=== PATIENT | female | born 1985 ===

== ENCOUNTER 2021-07-18 10:00 | Outpatient (RCR) | payer OTHER, SELFPAY | END 2021-08-03 15:08 | disposition home or self-care (01) | LOC: HO.PT 10:00 | PROVIDERS: PCP Internal Medicine; Visit Provider Internal Medicine | DX: M54.31 Sciatica, right side (principal) | CPT/HCPCS: 97110; 97161 ==

== ENCOUNTER 2023-05-13 19:36 | Emergency (ER) | payer OTHER, SELFPAY ==
--- NOTE | ~2023-05-13 | XR_ITS ---
EXAMINATION: XR CHEST CLINICAL INFORMATION: Chest pain, shortness of breath. COMPARISON: None available. TECHNIQUE: 2 views of the chest were obtained. FINDINGS: No significant abnormality is noted involving the heart, lungs, mediastinum, bony thorax or soft tissues. XR/XR chest 2V IMPRESSION: Unremarkable examination.
[2023-05-13 19:45] VITALS: BP 118/76; PULSE 73; RESP 16; TEMP 37.2; O2SAT 97; BMI 36.2
--- NOTE | 2023-05-13 19:45 | ED.LOWEXIN ---
HPI - Extremity Injury (Lower) General Chief Complaint: Extremity Problem Stated Complaint: ?Blood clot in L leg Time Seen by Provider: 05/13/23 22:16 Source: patient Mode of arrival: ambulatory Limitations: no limitations History of Present Illness HPI Narrative: 38-year-old female came in for evaluation of shortness of breath with exertion, patient also noticed prominence of her leg veins yesterday and bruise on left calf, no trauma, no falls, no lower extremity swelling, no recent travel, no prolonged immobilization, no family history of DVT or PE. No AC. Related Data Allergies Allergy/AdvReac Type Severity Reaction Status Date / Time No Known Allergies Allergy Unverified 06/08/20 17:18 [No Known Allergies*] Review of Systems Review of Systems: All other systems are reviewed and are negative Constitutional: Reports as per HPI and Reports no additional constitutional complaints Eyes: Reports as per HPI and Reports no additional eye complaints Reports system reviewed and no additional complaints, except as documented Cardiovascular: Reports as per HPI and Reports no additional cardiovascular complaints Respiratory: Reports as per HPI and Reports no additional respiratory complaints Gastrointestinal: Reports as per HPI and Reports no additional gastrointestinal complaints Genitourinary: Reports no additional female genitourinary complaints Musculoskeletal: Reports no additional musculoskeletal complaints Skin/Breast: Reports system reviewed and no additional complaints, except as docu Psychiatric: Reports no additional psychiatric complaints Endocrine: Reports no additional endocrine complaints Hematologic/Lymphatic: Reports no additional hematologic/lymphatic complaints Allergic/Immunologic: Reports no additional allergic/immunologic complaints Reports system reviewed and no additional complaints, except as documented and Reports Abnormal speech present Physical Exam Vital Signs: Vital Signs: Last Vital Signs Temp 99.0 F 05/13/23 19:45 Pulse 73 05/13/23 19:45 Resp 16 05/13/23 19:45 BP 118/76 05/13/23 19:45 Pulse Ox 97 05/13/23 19:45 O2 Del Method Room Air 05/13/23 19:45 BMI result Body Mass Index 36.2 Vital signs have been reviewed as appeared to be correct. Blood pressure normal. Heart rate normal. Respiration rate normal. Temperature normal. Oxygen saturation normal. Appearance: Alert. Oriented X3. No acute distress. Head: Normal external exam. Normocephalic. Atraumatic. No Vance signs noted. No raccoon eyes noted Eyes: PERRLA. EOMI. Conjunctiva and sclera normal. Eyelids normal. ENT: TM's Normal. Pharynx normal. Uvula midline. Moist mucous membranes. No trismus noted. No drooling noted. No muffled voice noted. Neck: Normal inspection. Neck supple. FROM. No adenopathy. Thyroid Normal. No meningeal signs. No neck mass noted. CVS: Normal heart rate and rhythm. Heart sound normal. No murmurs noted. Pulses normal throughout. Respiratory: No respiratory distress. Painless inspiration. Breath sounds normal. No wheezes/rales/rhonchi noted. Chest nontender. No accessory muscle usage noted or decreased air movement noted. Abdomen: Soft and nontender. Bowel sounds normal in all 4 quadrants. No distention noted. No organomegaly noted. No visible injury noted. Back: No CVA tenderness. Full range of motion noted. Skin: Skin warm and dry. Normal skin color. Normal skin turgor. No rashes/lesions/lacerations noted. Extremities: No lower extremity edema. Extremities exhibit normal range of motion. Extremities nontender. Neuro: Oriented X 3. Cranial nerve exam: II-XII are grossly intact No motor deficit. No sensory deficit. Reflexes normal. Course Course Course Narrative: RME: 38yo F w/no sig PMHx c/o LLE pain and bruising since yesterday. Also reports CP/SOB. denies OCPs, travel, smoking, hx clots EKG, labs including d-dimer & CXR ordered Full HPI, ROS and PE to be performed by primary ED provider. Reevaluation(s) Reevaluation #1: 38-year-old female otherwise healthy came in for evaluation of lower extremities swelling and bruise with a concern of shortness of breath and chest pain yesterday. Low risk for DVT/PE no recent travel, no recent prolonged immobilization, negative D-dimer. Time: 22:29 Medical Decision Making Differential Diagnosis Differential Diagnoses: The differential diagnosis associated with the presentation includes (ACS, pulmonary embolism, DVT, pneumonia, pneumothorax, pleural effusion, electrolyte abnormality, severe anemia.) Admission/Observation Consideration of admission/observation: Escalation of care including admission/observation considered Lab Data MDM Lab Attestation statement: I reviewed the patient's lab results. 05/13/23 21:02 05/13/23 21:02 Labs: Lab Results 0805/13/23 05/13/23 Range/Units 21:02 21:02 21:02 WBC 9.6 (4.8-10.8) X10*3/uL RBC 5.28 (4.20-5.50) X10*6/uL Hgb 14.0 (12.0-16.0) g/dl Hct 43.7 (37.0-47.0) % MCV 82.8 (80.0-98.0) fL MCH 26.5 L (27.0-33.0) pg MCHC 32.0 (31.0-35.0) g/dl RDW 12.3 (11.0-16.0) % Plt Count 313 (160-400) X10*3/uL MPV 10.4 (9.4-12.3) fL Immature Gran % (Auto) 0.3 (0.0-0.4) % Neut % (Auto) 64.5 (45-73) % Lymph % (Auto) 25.3 (20-40) % [place] % (Auto) 7.0 (2-11) % Eos % (Auto) 2.4 (0-4) % Baso % (Auto) 0.5 (0-2) % Lymph # (Auto) 2.4 (1.2-4.9) X10*3/uL [place] # (Auto) 0.7 (0.1-1.2) X10*3/uL Eos # (Auto) 0.2 (0.0-0.4) X10*3/uL Baso # (Auto) 0.1 (0.0-0.2) X10*3/uL Abs Immat Gran (auto) 0.03 (0.00-0.03) X10*3/uL Absolute Neuts (auto) 6.2 (2.0-8.3) x10*3/uL Absolute Nucleated RBC 0.000 (0.0-0.012) X10*3/uL Nucleated RBC % (auto) 0.0 (0.0-0.2) /100WBC D-Dimer High Sensitivty < 150 NG/ML Sodium 140 (135-145) mmol/L Potassium 4.1 (3.3-5.1) mmol/L Chloride 106 (96-108) mmol/L Carbon Dioxide 25 (22-29) mmol/L Anion Gap 13 (12-20) BUN 16 (9-16) mg/dL Creatinine 0.78 (0.5-1.4) mg/dL Estim Creat Clear Calc 107.9 Estimated GFR > 60 Random Glucose 89 (60-115) mg/dL Calcium 9.5 (8.4-10.2) mg/dL Troponin I High Sens (<3.5-17.0) ng/L Beta HCG, Quant < 2 mIU/mL 05/13/23 Range/Units 21:02 WBC (4.8-10.8) X10*3/uL RBC (4.20-5.50) X10*6/uL Hgb (12.0-16.0) g/dl Hct (37.0-47.0) % MCV (80.0-98.0) fL MCH (27.0-33.0) pg MCHC (31.0-35.0) g/dl RDW (11.0-16.0) % Plt Count (160-400) X10*3/uL MPV (9.4-12.3) fL Immature Gran % (Auto) (0.0-0.4) % Neut % (Auto) (45-73) % Lymph % (Auto) (20-40) % [place] % (Auto) (2-11) % Eos % (Auto) (0-4) % Baso % (Auto) (0-2) % Lymph # (Auto) (1.2-4.9) X10*3/uL [place] # (Auto) (0.1-1.2) X10*3/uL Eos # (Auto) (0.0-0.4) X10*3/uL Baso # (Auto) (0.0-0.2) X10*3/uL Abs Immat Gran (auto) (0.00-0.03) X10*3/uL Absolute Neuts (auto) (2.0-8.3) x10*3/uL Absolute Nucleated RBC (0.0-0.012) X10*3/uL Nucleated RBC % (auto) (0.0-0.2) /100WBC D-Dimer High Sensitivty NG/ML Sodium (135-145) mmol/L Potassium (3.3-5.1) mmol/L Chloride (96-108) mmol/L Carbon Dioxide (22-29) mmol/L Anion Gap (12-20) BUN (9-16) mg/dL Creatinine (0.5-1.4) mg/dL Estim Creat Clear Calc Estimated GFR Random Glucose (60-115) mg/dL Calcium (8.4-10.2) mg/dL Troponin I High Sens < 2.7 (<3.5-17.0) ng/L Beta HCG, Quant mIU/mL Independent Interpretation I performed an independent interpretation of an: Plain X-Ray (No acute intrathoracic pathology.) Radiology Impression Discussion of test interpretation with radiology: I have reviewed the radiologist's reading. Scores Heart Score History: -0- slightly suspicious ECG: -0- normal Age: -0- < or = 45 Risk factory: -0- no risk factors known Troponin: -0- < or = normal limit Score: 0 Risk: 1.7% Wells DVT Alternative Dx as likely as or more likely than DVT: -2 Score: -2 2-tier Risk: unlikely risk (5%) 3-tier Risk: low risk (3%) Discharge Plan Discharge Clinical Impression: Acute leg pain, Dyspnea Patient Disposition: Home, Self-Care Instructions: Dyspnea (ED) Referrals: Latesha Allen MD [Primary Care Provider] -
--- NOTE | 2023-05-13 19:48 | ECG_ITS ---
Test Reason : BLOOD CLOT Blood Pressure : / mmHG Vent. Rate : 071 BPM Atrial Rate : 071 BPM P-R Int : 174 ms QRS Dur : 086 ms QT Int : 394 ms P-R-T Axes : 041 070 045 degrees QTc Int : 428 ms Normal sinus rhythm with sinus arrhythmia Normal ECG No previous ECGs available Referred By: Ronit Cody Electronically Signed By:CHELLE WARREN
[2023-05-13 21:06] LABS: MANUAL DIFF FLAG NO
[2023-05-13 21:09] LABS: Basophils Absolute Auto 0.1 X10*3/uL (0.0-0.2); Basophils Percent Auto 0.5 % (0-2); Eosinophils Absolute Auto 0.2 X10*3/uL (0.0-0.4); Eosinophils Percent Auto 2.4 % (0-4); Hematocrit 43.7 % (37.0-47.0); Imm Gran Abs Auto 0.03 X10*3/uL (0.00-0.03); Imm Gran Pct Auto 0.3 % (0.0-0.4); Lymphocytes Absolute Auto 2.4 X10*3/uL (1.2-4.9); Lymphocytes Percent Auto 25.3 % (20-40); Mean Corpuscular Hemoglobin 26.5 pg (27.0-33.0); Mean Corpuscular Volume 82.8 fL (80.0-98.0); Mean Platelet Volume 10.4 fL (9.4-12.3); Monocytes Absolute Auto 0.7 X10*3/uL (0.1-1.2); Neutrophils Absolute Auto 6.2 x10*3/uL (2.0-8.3); Neutrophils Percent Auto 64.5 % (45-73); Platelet Count 313 X10*3/uL (160-400); Red Blood Count 5.28 X10*6/uL (4.20-5.50); Red Cell Distribution Width 12.3 % (11.0-16.0); White Blood Count 9.6 X10*3/uL (4.8-10.8)
[2023-05-13 21:26] LABS: Anion Gap 13 (12-20); Blood Urea Nitrogen 16 mg/dL (9-16); Calcium 9.5 mg/dL (8.4-10.2); Carbon Dioxide 25 mmol/L (22-29); Chloride 106 mmol/L (96-108); Creatinine Clr Calc Pharmacy 107.9; Estimated Glomerular Filt Rate > 60; Glucose Random 89 mg/dL (60-115); Potassium 4.1 mmol/L (3.3-5.1); Sodium 140 mmol/L (135-145)
[2023-05-13 21:28] LABS: HCG Quantitative < 2 mIU/mL; Troponin-I High Sensitivity < 2.7 ng/L (<3.5-17.0)
[2023-05-13 21:52] LABS: D Dimer High Sensitivity < 150 NG/ML
--- OUTSIDE RECORDS SUMMARY | 2023-05-13 22:29 | XMS_ITS | Continuity of Care Document ---
Author Name Unknown Organization [facility] Address [address] [place] [address]- Care Team Providers Care Welding Setter Name Role Phone Jazzy VAZQUEZ, Ted Walker Primary Care Physician [phone] Encounter [facility] Date(s): 11/04/21 - 12/04/21 [facility] [address], [place] [address] Attending Physician: Rashard Nicolas Admitting Physician: AdmtrRashard Referring Physician: Admtr, Ar8 Allergies, Adverse Reactions, Alerts Substance Reaction Severity Status Other Food Allergy 1, 2 Itching Acti ve Almonds Active 1almonds 2peaches Immunizations Given and Recorded Vaccine Date Status Refusal Reason influenza virus vaccine, inactivated 1 06/11/13 Gi sánchez influenza virus vaccine, inactivated 06/21/12 Give n influenza virus vaccine, inactivated 07/21/89 Give n tetanus/diphtheria/pertussis, acel(Tdap) 2 06/11/13 Given tetanus/diphtheria/pertussis, acel(Tdap) 3 06/21/12 Given tetanus-diphtheria toxoids (Td) 09/07/07 Given tetanus-diphtheria toxoids (Td) 05/31/99 Given hepatitis B pediatric vaccine 06/10/98 Given hepatitis B pediatric vaccine 10/04/97 Given hepatitis B pediatric vaccine 08/31/97 Given Measles/Mumps/Rubella Virus Vaccine 08/27/95 Given Measles/Mumps/Rubella Virus Vaccine 01/07/89 Given diphtheria/tetanus/pertussis, acel(DTaP) 06/08/91 Given diphtheria/tetanus/pertussis, acel(DTaP) 12/24/88 Given diphtheria/tetanus/pertussis, acel(DTaP) 87 Given diphtheria/tetanus/pertussis, acel(DTaP) 87 Given diphtheria/tetanus/pertussis, acel(DTaP) 87 Given Poliovirus Vaccine, Inactivated 12/24/88 Given Poliovirus Vaccine, Inactivated 87 Given Poliovirus Vaccine, Inactivated 87 Given Poliovirus Vaccine, Inactivated 87 Given 1Admin Note: VIS GIVEN , DATED 04/16/2013 2Admin Note: vis given, dated 10/15/2011 3Admin Note: vis 10/15/2011 Problem List Condition Effective Dates Status Health Status Inform ant Rectocele(Confirmed) Active Streptococcal pharyngitis(Confirmed) 10/25/08 Active Term (Confirmed) Active Social History Social History Type Response Tobacco Use: smokes hookah. Sex
--- OUTSIDE RECORDS SUMMARY | 2023-05-13 22:29 | XMS_ITS | Continuity of Care Document ---
Author Name Unknown Organization [facility] Address [address] [place] [address]- Care Team Providers Care Charter Driver Name Role Phone Jazzy VAZQUEZ, Ted Walker Primary Care Physician [phone] [place] [facility] [place] 08/08/22 - 08/15/22 [facility] [address] [place], [place] [address] Attending Physician: Remington Keller DO Referring Physician: Joshua Day MD Allergies, Adverse Reactions, Alerts Substance Reaction Severity [...] 3Admin Note: vis 10/15/2011 Problem List Condition Confirmation Course Effective Dates Status H ealth Status Informant Rectocele Confirmed Active Streptococcal pharyngitis Confirmed 10/25/08 Active Term Confirmed Active Vital Signs Most recent to oldest [Reference Range]: 1 Height 160.00 cm (08/08/22 1:43 PM) Oxygen Saturation [94-100 %] 100 % (08/08/22 1:43 PM) Pulse Rate [55-90 bpm] 64 bpm (08/08/22 1:43 PM) Blood Pressure [90-138/55-84 mm Hg] 133/ 70mm Hg (08/08/22 1:43 PM) Respiratory Rate [16-30 br/min] 18 br/mi n (08/08/22 1:43 PM) Temperature [96.8-100.4 DegF] 98.1 DegF (08/08/22 1:43 PM) Mode of Delivery (Oxygen) Room air (08/08/22 1:43 PM) Blood pressure sites Arm, left (08/08/22 1:43 PM) Temperature Route Temporal (08/08/22 1:43 PM) Social History Social History Type Response Tobacco Use: smokes hookah. Sex Note * Alondra Calvert: PERFORM, SIGN, VERIFY Event Display: Patient Education/Instruction Authored Date: [id number] [facility] *[facility] Clinical Summary Name MOE CRAFT Age 37 Years 1985 PCP Jazzy VAZQUEZ, Ted Walker PCP Visit Date 08/08/2022 13:30:00 Additional Instructions: Scheduled Appointments?? Future Appointments ?No Future Appointments Scheduled Follow-Up Instructions ?? Diagnosis Medications: Please continue your medications until treatment is completed or stopped by your provider. Discuss any questions related to medications with your provider. New Medications [id number], [address], [place] [id number], [phone] Clindamycin (clindamycin 300 mg oral capsule) 1 capsule Oral 3 times a day for 7 Days. Refills: 0. Next Dose: Allergy Info:?? Other Food Allergy; Almonds Medications Given This Visit Future Orders ?No future orders Vital Signs Height 160.00 cm Weight BMI Blood Pressure 133 mm Hg/70 mm Hg Temperature 98.1 DegF Pulse Rate 64 bpm Respiratory Rate 18 br/min 02 Sat Mode of Delivery 100 %/Room air You can now view a summary of your hospital visit from the comfort of your home through a free online portal called [employer] is a website that allows you to securely view your medical information including discharge summary, medications and follow-up visits. ??You can alsosend a secure electronic message to your doctor???s office to request appointments, renew medications or just ask a question. You can enroll at [email or web address]) or register during your next office visit. Disclaimer:?? The information provided is of a general nature and is intended to be used in conjunction with the recommendations and advice of your health care practitioner. ??Every effort has been made to ensure that the information provided is accurate and complete at the time it is provided to you however, as your needs change, or, as new ??information becomes available, different or additional instructions may be required. If you have questions, please consult with your primary care provider or pharmacist, as appropriate. ??This information is not intended to serve as substitution for assessment and evaluation by a qualified health care provider. If you do not have a primary care provider, you may find a [facility] provider by calling [facility] [employer] at [phone]. For information about the plan of care including goals and instructions for your diagnosis, please see the patient education orders section of this document. Patient Education Materials?? The content of this educational material or handout may have been modified, supplemented, or adapted from its original content and format to support your individualized medical care. Patient Care team information Care Team Personnel Name: eTd Purcell MD Position: [facility] Physician (General Medicine) Member Role: PCP Address: Address: [address] [place] [address]- Care Team Related Persons Name: AUSTIN TREVIZO Address: [address] [place] [address] Name: MIRIAM RING Address: home [address] [place] [address]
--- OUTSIDE RECORDS SUMMARY | 2023-05-13 22:29 | XMS_ITS | Continuity of Care Document ---
Author Name Unknown Organization [facility] Address [address] [place] [address]- Care Team Providers Care Wallpaper Hanger Name Role Phone Jazzy VAZQUEZ, Ted Walker Primary Care Physician [facility]counter [facility] Date[facility]s): 11/[facility]21 - 11/11/21 [facility] [address] [place], [place] [address] Attending Physician: Frantz VAZQUEZ, Ronit Tillman Referring Physician: Joshua Day MD Allergies, Adverse Reactions, Alerts Substance Reaction Severity Status Almonds Active Other Food Allergy 1, 2 Itching Acti ve 1almonds 2peaches Immunizations Given and Recorded Vaccine [...] Streptococcal pharyngitis(Confirmed) 10/25/08 Active Term (Confirmed) Active Vital Signs Most recent to oldest [Reference Range]: 1 Height 160.00 cm (11/04/21 1:52 PM) Oxygen Saturation [94-100 %] 99 % (11/04/21 1:52 PM) Pulse Rate [55-90 bpm] 84 bpm (11/04/21 1:52 PM) Blood Pressure [90-138/55-84 mm Hg] 135/ 83mm Hg (11/04/21 1:52 PM) Temperature [96.8-100.4 DegF] 99.2 DegF (11/04/21 1:52 PM) Mode of Delivery (Oxygen) Room air (11/04/21 1:52 PM) Blood pressure sites Arm, right (11/04/21 1:52 PM) Temperature Route Temporal (11/04/21 1:52 PM) Social History Social History Type Response Tobacco Use: smokes hookah. Sex
--- OUTSIDE RECORDS SUMMARY | 2023-05-13 22:29 | XMS_ITS | Continuity of Care Document ---
Author Name Unknown Organization [facility] Address [address] [place] [address]- Care Team Providers Care Chiropractic Assistant Name Role Phone Jazzy VAZQUEZ, Ted Walker Primary Care Physician [facility]counter [facility]s): 08/08[facility]22 - 09/07/22 [facility] [address] [place], [place] [address] Attending Physician: AdmRashard calzada Admitting Physician: Admtr, Ar8 Referring Physician: Admtr, Ar8 Allergies, Adverse Reactions, [...] pharyngitis Confirmed 10/25/08 Active Term Confirmed Active Social History Social History Type Response Tobacco Use: smokes hookah. Sex Patient Care team information Care Team Personnel Name: Jazzy VAZQUEZ, Ted Walker Position: [facility] Physician (General Medicine) Member Role: PCP Address: Address: [address] [place] [address]- Care Team Related Persons Name: AUSTIN TREVIZO Address: home [address] [place] [address] Name: MIRIAM RING Address: home [address] [place] [address]
== END 2023-05-13 23:04 | disposition home or self-care (01) ==
PROVIDERS: Physician Assistant; Emergency Provider Emergency Medicine; PCP Internal Medicine
DX: M79.662 Pain in left lower leg (principal); R06.02 Shortness of breath
CPT/HCPCS: 36415; 71046; 80048; 84484; 84702; 85025; 85379; 93005; 99283

== ENCOUNTER 2023-10-03 19:38 | Emergency (ER) | payer OTHER, SELFPAY ==
[2023-10-03 19:59] VITALS: BP 147/86; PULSE 70; RESP 16; TEMP 36.2; O2SAT 98; BMI 35.1
--- NOTE | 2023-10-03 23:48 | ED.BACK ---
HPI - Back Pain/Injury General Chief Complaint: Back Pain/Injury Stated Complaint: lower back pain x1week Time Seen by Provider: 10/03/23 22:59 Source: patient Mode of arrival: ambulatory History of Present Illness HPI Narrative: 38-year-old female who presents with acute on chronic back pain for the past few days without associated fever, chills, dysuria. Patient denies any bowel bladder dysfunction. Related Data Previous Rx's Medication Instructions Recorded cyclobenzaprine 5 mg tablet 5 mg PO BEDTIME PRN muscle spasm 10/03/23 #4 tabs ketorolac 10 mg tablet 10 mg PO Q6H PRN pain 5 days #20 10/03/23 tabs Allergies Allergy/AdvReac Type Severity Reaction Status Date / Time No Known Allergies Allergy Verified 10/03/23 19:59 [No Known Allergies*] Review of Systems Review of Systems: Pertinent positives and negatives as stated in [facility] Past Medical History Source: nursing notes reviewed Onset Date is defined in the Problem List Problems that require an onset date and time if occurred within 24 hrs of arrival to the ED Aortic Dissection and Rupture; Neurologic impairment; Cardiopulmonary Arrest; Endotracheal Intubation; Insertion or Replacement of Mechanical Circulatory Assist Device Social History Social History Advance Directives: No Advance Directives Information Provided: No Physical Exam Vital Signs: Vital Signs: Last Vital Signs Temp 97.2 F 10/03/23 19:59 Pulse 70 10/03/23 19:59 Resp 16 10/03/23 19:59 BP 147/86 H 10/03/23 19:59 Pulse Ox 98 10/03/23 19:59 O2 Del Method Room Air 10/03/23 19:59 BMI result Body Mass Index 35.1 VITAL SIGNS: Reviewed. GENERAL: Well developed, well nourished, in no acute distress. HEAD: Normocephalic/atraumatic EYES: PERRLA, EOMI LUNGS: Normal breath sounds. No adventitious sounds or accessory muscle use. SpO2<98> CARDIOVASCULAR: Regular rate and rhythm without noted murmurs ABDOMEN: Soft, non-tender, non-distended with bowel sounds. MUSCULOSKELETAL: No tenderness, deformities, or effusions noted on gross inspection. EXTREMITIES: No cyanosis, clubbing or edema. SKIN: Inspection of the skin reveals no rashes NEUROLOGIC: Alert and oriented x 4. Strength and sensation to light touch were grossly intact x 4. Medications Administered Discontinued Medications Generic Name Dose Route Start Last Admin Trade Name Baudilio PRN Reason Stop Dose Admin Acetaminophen 975 mg 10/03/23 23:48 10/04/23 00:08 Acetaminophen 325 Mg Tablet PO 10/03/23 23:49 975 mg ONCE ONE Administration Ketorolac Tromethamine 15 mg 10/03/23 23:48 10/04/23 00:08 Ketorolac Tromethamine 15 Mg/Ml Vial IM 10/03/23 23:49 15 mg ONCE ONE Administration Lidocaine 1 patch 10/03/23 23:48 10/04/23 00:07 Lidocaine 4 % Patch Adh..Patch TRANSDERMA 10/03/23 23:49 1 patch ONCE ONE Administration Protocol Medical Decision Making Medical Decision Making MDM Narrative: 38-year-old female with history and clinical presentation consistent with atraumatic back pain, no red flag symptoms to suggest acute cord compression. Suspect patient has a lumbar radiculopathy and patient provided with combination analgesics and a lidocaine patch and then discharged on similar course with the addition of a short course of cyclobenzaprine. Differential Diagnosis Differential Diagnoses: The differential diagnosis associated with the presentation includes Please see the discussion Admission/Observation Consideration of admission/observation: Escalation of care including admission/observation considered Please see the discussion above Discharge Plan Discharge Clinical Impression: Lumbar radiculopathy, Muscle spasm Patient Disposition: Home, Self-Care Instructions: Lumbar Radiculopathy (ED), Muscle Spasm (ED), Lower Back Exercises (ED) Additional Instructions: 1. Tylenol 1000 mg, orally, every 6 hours as needed for pain control. Do not exceed 4000 mg within 24 hours. 2. Lidocaine patch, apply to area of maximal tenderness as directed on the outside packaging. 3. Follow-up with your primary care doctor in discuss possible physical therapy. Return to the ER for any worsening symptoms. Prescriptions: New ketorolac 10 mg tablet 10 mg PO Q6H PRN (Reason: pain) 5 Days Qty: 20 0RF Rx Instructions: Patient received Toradol in the emergency room cyclobenzaprine 5 mg tablet 5 mg PO BEDTIME PRN (Reason: muscle spasm) Qty: 4 0RF Referrals: Wero Allen [Primary Care Provider] -
[2023-10-04] MEDS: Lidocaine 4 % Patch ADH..PATCH 1 PATCH TRANSDERMA (00:07)
[2023-10-04] MEDS: Acetaminophen 325 MG TABLET 975 MG PO (00:08)
[2023-10-04] MEDS: Ketorolac Tromethamine 15 MG/ML VIAL IM (00:08)
== END 2023-10-04 00:11 | disposition home or self-care (01) ==
PROVIDERS: Emergency Provider Student in an Organized Health Care Education/Training Program; PCP Internal Medicine
DX: M54.16 Radiculopathy, lumbar region (principal); R25.2 Cramp and spasm
CPT/HCPCS: 96372; 99284; J1885

== ENCOUNTER 2024-03-20 15:25 | Emergency (ER) | payer OTHER, SELFPAY ==
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
[2024-03-20 15:57] VITALS: BP 133/70; PULSE 75; RESP 18; TEMP 36.5; O2SAT 99; BMI 36.9
[2024-03-20 16:41] LABS: HCG Quantitative < 2 mIU/mL
[2024-03-20] MEDS: Ondansetron ODT 4 MG TAB.RAPDIS TRANSLINGU (17:49)
[2024-03-20] MEDS: Ketorolac Tromethamine 30 MG/ML VIAL IM (17:49)
[2024-03-20 18:08] VITALS: BP 115/59; PULSE 77; RESP 16; TEMP 36.7; O2SAT 98
[2024-03-20 18:37] VITALS: BP 115/59; PULSE 77; RESP 16; TEMP 36.7; O2SAT 98
== END 2024-03-20 18:37 | disposition home or self-care (01) ==
PROVIDERS: Physician Assistant Medical; Emergency Provider Emergency Medicine; PCP Internal Medicine
DX: S06.0X0A Concussion without loss of consciousness, initial encounter (principal); S00.11XA Contusion of right eyelid and periocular area, initial encounter; Y04.2XXA Assault by strike against or bumped into by another person, initial encounter; R51.9 Headache, unspecified; Y93.89 Activity, other specified; Y92.511 Restaurant or cafe as the place of occurrence of the external cause; Y99.9 Unspecified external cause status
CPT/HCPCS: 36415; 70450; 70486; 84702; 96372; 99284; J1885

== ENCOUNTER 2024-06-22 08:09 | Emergency (ER) | payer OTHER, SELFPAY ==
[2024-06-22 08:11] VITALS: BP 145/84; PULSE 67; RESP 18; TEMP 36.7; O2SAT 96; BMI 34.7
--- NOTE | 2024-06-22 10:16 | ED_ITS ---
HPI - General Adult General Chief complaint: Back Pain/Injury Stated complaint: back pain Time Seen by Provider: 06/22/24 09:34 Source: patient Mode of arrival: ambulatory Limitations: no limitations History of Present Illness ED Provider: Kamaljit Duffy PA-C HPI narrative: 39 yold female with pmh of scaitca and lumbar radiculopathy presents to the ED for right-sided lower back pain radiating down right leg. Patient states having these episodes before in the past. Patient denies any urinary/bowel incontinence. Patient denies any nausea, vomiting, dysuria, hematuria, flank pain, fever, chills, or any history of IV drug use. Patient denies any history of HIV hepatitis-C or any immunocompromise diseases. Patient denies any new trauma or any numbness/tingling in genital area. Related Data Previous Rx's ?Medication ?Instructions ?Recorded cyclobenzaprine 5 mg tablet 5 mg PO BEDTIME PRN muscle spasm 10/03/23 #4 tabs ketorolac 10 mg tablet 10 mg PO Q6H PRN pain 5 days #20 10/03/23 tabs ondansetron 4 mg disintegrating 4 mg PO DAILY PRN nausea and 03/20/24 tablet vomiting 5 days #10 tabs ketorolac 10 mg tablet 10 mg PO Q6H PRN pain 5 days #20 06/22/24 tabs lidocaine 4 % topical patch 1 patch topical DAILY PRN pain #15 06/22/24 ea prednisone 20 mg tablet 40 mg (2 x 20 mg) PO DAILY 5 days 06/22/24 #10 tabs Allergies Allergy/AdvReac Type Severity Reaction Status Date / Time No Known Allergies Allergy Verified 06/22/24 08:12 [No Known Allergies*] Review of Systems Review of Systems: back pain radiating down right leg Yes all other systems are reviewed and are negative PMFSH Social History Social History Advance Directives: No Advance Directives Information Provided: No Do you have a plan to hurt others: No Plan Physical Exam ED Vital Signs: Vital Signs - 24 hr 06/22/24 08:11 06/22/24 11:42 06/22/24 11:46 Temperature 98.0 F 98.3 F 98.3 F Pulse Rate 67 73 73 Respiratory Rate 18 20 20 Blood Pressure 145/84 H 119/78 119/78 Pulse Oximetry 96 97 97 Oxygen Delivery Method Room Air Room Air Room Air BMI result Body Mass Index 34.7 Const General: cooperative, healthy appearing, comfortable, no acute distress, well developed, alert, awake and Physically active Orientation/consciousness: patient oriented x3 [facility] Head: Yes normal to inspection, Yes No palpable skull fracture present, Yes normocephalic and Yes atraumatic Ears: hearing grossly normal bilaterally, external ears normal, TM's normal bilaterally, TM normal on the right, TM normal on the left, EAC's normal, mastoids normal and no periauricular adenopathy Throat: Yes posterior oropharynx normal, Yes tonsils normal and Yes uvula midline Eyes General: appearance normal, both eyes and all related structures Neck Neck: Yes normal visual inspection, Yes full ROM, Yes no lymphadenopathy, Yes no meningeal signs, Yes trachea midline, Yes supple, No anterior neck swelling and No tender Chest Chest palpation & inspection: normal inspection of the chest and normal palpation of entire chest wall Resp Effort & Inspection: normal respiratory effort and able to speak in complete sentences Cardio Jugular venous distension: no JVD Heart sounds: S1 normal heart sound present and S2 normal heart sound present GI Inspection: Yes normal to inspection Palpation (GI): Soft to palpation, not firm, nontender, no guarding and not rigid General: Yes no CVA tenderness Back/Spine/Pelvis Other: Positive right straight leg test Back: no CVA tenderness and back tenderness (mild lumbar) Skin General skin exam: no rashes or lesions noted, elasticity normal and turgor normal Neuro General: patient oriented x3, gait normal, tone normal, moves all extremities, Normal light touch and pain sensation, no meningeal signs, no focal motor deficits, CN's II-XI intact bilaterally and normal sensation to monofilament Extrem General: Yes normal to inspection, Yes full ROM and Yes capillary refill normal Psych Appearance: grossly normal, well kempt and not disheveled Medications Administered Discontinued Medications Generic Name Dose Route Start Last Admin Trade Name Freq PRN Reason Stop Dose Admin Ketorolac Tromethamine 30 mg 06/22/24 10:31 06/22/24 11:31 Ketorolac Tromethamine 30 Mg/Ml Vial IM 06/22/24 10:32 30 mg ONCE ONE Administration Prednisone 60 mg 06/22/24 10:31 06/22/24 11:31 Prednisone 20 Mg Tablet PO 06/22/24 10:32 60 mg ONCE ONE Administration Medical Decision Making Medical Decision Making MDM Narrative: 39-year-old female with history of sciatica and lumbar radiculopathy presents to ED for right-sided back pain radiating down right leg without any trauma. Negative for any neuro deficits or signs of cauda equinus syndrome or epidural abscess. Patient denies any urinary symptoms. Patient was given pain meds and pain improved. Not suspecting kidney stones, UTI, cauda equinus syndrome, epi dural abscess, fracture, or dilsclocation. Patient explained worrisome signs and informed to return to the ED immediately and also follow up with primary care provider. NO need for repeat xray Differential Diagnosis Differential Diagnoses: The differential diagnosis associated with the presentation includes (Lumbar radiculopathy, sciatica) Admission/Observation Consideration of admission/observation: Escalation of care including admission/observation considered Independent Historian Clinical information obtained from an independent historian. History obtained from or confirmed by: Other (patient) External Record Review External record reviewed: Other (prior visti) Prescription Management I considered prescription management with: Pain Medication Discharge Plan Discharge Clinical Impression: Lumbar radiculopathy, Sciatica Patient Disposition: Home, Self-Care Instructions: Sciatica (ED), Lumbar Radiculopathy (ED), Lower Back Exercises (ED) Additional Instructions: Return to the ED immediately for worsening back pain, urinary/bowel inco ntinence, weakness/paralysis/tingling of lower extremities, abdominal pain, nausea, vomiting, fever, chills, or any other concerning symptoms. Recommend follow-up with your primary care provider. Your primary care provider should refer you to physical therapy. If symptoms do not improve you may need outpatient MRI by a medical provider. Restrained from strenuous activities. Prescriptions: New ketorolac 10 mg tablet 10 mg PO Q6H PRN (Reason: pain) 5 Days Qty: 20 0RF Rx Instructions: Patient received 30 IM Toradol in the ED. prednisone 20 mg tablet 40 mg PO DAILY 5 Days Qty: 10 0RF lidocaine 4 % adhesive patch,medicated 1 patch topical DAILY PRN (Reason: pain) Qty: 15 0RF No Action ketorolac 10 mg tablet 10 mg PO Q6H PRN (Reason: pain) 5 Days Qty: 20 0RF Rx Instructions: Patient received Toradol in the emergency room cyclobenzaprine 5 mg tablet 5 mg PO BEDTIME PRN (Reason: muscle spasm) Qty: 4 0RF ondansetron 4 mg tablet,disintegrating 4 mg PO DAILY PRN (Reason: nausea and vomiting) 5 Days Qty: 10 0RF Stand Alone Forms: Work/School Release Interventions: ED Discharge Assessment Last Done: 06/22/24 11:46 Discharge Date/Time: 06/22/24 11:50 Print Language: Ukrainian
[2024-06-22] MEDS: predniSONE 20 MG TABLET 60 MG PO (11:31)
[2024-06-22] MEDS: Ketorolac Tromethamine 30 MG/ML VIAL IM (11:31)
[2024-06-22 11:42] VITALS: BP 119/78; PULSE 73; RESP 20; TEMP 36.8; O2SAT 97
[2024-06-22 11:46] VITALS: BP 119/78; PULSE 73; RESP 20; TEMP 36.8; O2SAT 97
== END 2024-06-22 11:50 | disposition home or self-care (01) ==
PROVIDERS: Emergency Provider Emergency Medicine; PCP Internal Medicine
DX: M54.41 Lumbago with sciatica, right side (principal)
CPT/HCPCS: 96372; 99283; 99284; J1885